=== PATIENT | male | born 1955 | race Caucasian/White ===

== ENCOUNTER → 2017-02-24 | Outpatient (REF) | LOC: ZLAB.WCH 18:18 | DX: Z12.5 Encounter for screening for malignant neoplasm of prostate (principal) | CPT/HCPCS: G0103 ==

== ENCOUNTER → 2018-06-17 | Outpatient (REF) | LOC: ZLAB.WCH 15:59 | DX: Z01.89 Encounter for other specified special examinations (principal) | CPT/HCPCS: G0103 ==

== ENCOUNTER → 2019-10-18 | Outpatient (CLI) | payer OTHER | LOC: COL.RAD 08:09 | DX: R41.3 Other amnesia (principal); R27.0 Ataxia, unspecified ==

== ENCOUNTER 2021-05-24 09:04 | Day surgery (SDC) | payer BC ==
[~2021-05-24] VITALS: Ht 177.8 cm; Wt 79.9 kg
[2021-05-24 09:49] VITALS: BP 132/64; PULSE 60; TEMP 97.5
[2021-05-24] MEDS ORDERED: ASPIRIN 81M81 MG/TA2 PO (09:58)
[2021-05-24] MEDS ORDERED: OMEGA-3 1000 MG1 CAP PO (09:59)
[2021-05-24] MEDS ORDERED: PRINIVIL20 MG PO (10:00)
[2021-05-24] MEDS ORDERED: NATURE'S BLEND500 M1 PO (10:00)
[2021-05-24] MEDS ORDERED: ARICEPT10 MG PO (10:01)
[2021-05-24] MEDS ORDERED: ZOCOR 10MG10 MG PO (10:02)
[2021-05-24] MEDS ORDERED: MELATONIN5 M1 SL (10:02)
[2021-05-24] MEDS ORDERED: NORCO 325 MG-51 TAB PO (13:07)
[2021-05-24 13:40] VITALS: BP 122/63; PULSE 64; TEMP 97.2
[2021-05-24 13:55] VITALS: BP 112/72; PULSE 58
[2021-05-24 14:10] VITALS: BP 119/72; PULSE 60
--- NOTE | 2021-05-24 14:45 | NUR ---
1340 PT RETURNED TO BAY 1 VIA CART. ALERT AND ORIENTED. DENIES PAIN AND NAUSEA. POSTOP VITALS STARTED. 3 OPERATIVE SITES, ALL CLEAN, DRY AND INTACT. WARM BLANKET OVER ABDOMEN. PEPSI AND MUFFIN PROVIDED. CALL LIGHT IN REACH. 1355 PT TOLERATING FOOD AND DRINK WELL. DENIES ANY DISCOMFORT. 1410 VSS. PT UP TO RESTROOM, ABLE TO VOID WITHOUT DIFFICULTY. ALLOWED PT TO DRESS. REVIEWED DISCHARGE INSTRUCTIONS AND EDUCATION MATERIAL, ANSWERED ALL QUESTIONS. PT AND VERBALIZED UNDERSTANDING. 1445 TRANSFERED PT VIA WHEELCHAIR TO PERSONAL VEHICLE TO BE DRIVEN HOME BY .
== END 2021-05-24 14:45 | disposition home or self-care (01) ==
LOC: SDCO 09:04
DX: K40.90 Unilateral inguinal hernia, without obstruction or gangrene, not specified as recurrent (principal); D17.6 Benign lipomatous neoplasm of spermatic cord; Z79.899 Other long term (current) drug therapy; Z87.891 Personal history of nicotine dependence
CPT/HCPCS: C1781; J0690; J1100; J1885; J2405; J2704; J3010; J7120